=== PATIENT | male | born 1965 | race Caucasian/White ===

== ENCOUNTER → 2016-10-06 | Day surgery (SDC) | payer BC, MEDICARE ==
[~2016-10-06] MED LIST: BUPIVACAINE HCL PF 0.75% 30 ML VIAL ONE; CLINDAMYCIN PHOS 600 MG/4 ML VIAL ONE; GLIP10TA6 PO; LACTATED RINGER'S 1000 ML INJ 1,000 ML ONE; LIDOCAINE 1.5%/EPINEPHrine 1:200,000 PF SOLN 30 ML AMP ONE; MIDAZOLAM HCL 5 MG/ML VIAL (1 ML) ONE; ONDANSETRON HCL 4 MG/2 ML VIAL IV PUSH ONE; PROPOFOL 200 MG/20 ML AMP IV ONE
--- NOTE | 2016-10-08 11:25 | MP ---
cc: TANNER GAGE DATE OF SURGERY 10/06/2016 PREOPERATIVE DIAGNOSIS Left shoulder adhesive capsulitis, left shoulder impingement syndrome with bursitis, left shoulder fail biceps tenodesis with biceps rupture. POSTOPERATIVE DIAGNOSIS Left shoulder adhesive capsulitis, left shoulder impingement syndrome with bursitis, left shoulder fail biceps tenodesis with biceps rupture. PROCEDURE Left shoulder arthroscopic lysis of adhesions with subacromial decompression, left shoulder open biceps tenodesis. SURGEON Dr. Tanner Gage [employer] WORK[employer] ESTELA Walker ANESTHESIA General with an interscalene block. ESTIMATED BLOOD LOSS 50 cc COMPLICATIONS None IMPLANTS USED Arthrex JUSTIFICATION This patient is a 51-year-old male who injured his left shoulder. He has had persistence of pain, weakness, and stiffness, in regards to his condition. He has had extensive prior treatment with Dr. Pimentel to include an arthroscopy and biceps tenodesis. He has had progressive pain and stiffness of the shoulder with failure of conservative treatment. Clinical exam as well as MRI confirmed the above-named findings. The patient counseled as to the risks, benefits and alternatives in regards to the above named proposed surgical procedure. He did wish to proceed with surgery. PROCEDURE IN DETAIL A written consent was obtained. The patient was identified, taken to operating room, placed supine position and general anesthesia was administered, as well as two grams of IV Ancef. He receive a preoperative anterior interscalene block. The patient was carefully turned to a right lateral decubitus position. A lateral arm roll was placed. All bony prominences and pressure points were well padded. The left upper extremity was gently placed with an arthroscopic arm mcintosh and 10 pounds of traction placed. The left shoulder was prepped and draped using Isopropyl alcohol, Hibiclens solution and DuraPrep solution. After a time-out was performed, a standard posterior and anterior glenohumeral arthroscope portal was established. There was evidence of glenohumeral labral tearing along the anterior superior and posterior portions and extensive debridement of the labrum was performed. This included the 3 o'clock position up to the 12 o'clock position and back down to the 9 o'clock position. 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 There was evidence of scar formation and capsulitis mostly involving the anterior and inferior aspect. An arthroscopic shaver was introduced from the anterior portal and extensive debridement of the capsule and scar formation was performed to include lysis of adhesions. Attention was then turned to the subacromial space. There was evidence of significant impingement and bursitis. The arthroscopic shaver was introduced from the lateral portal. A subacromial decompression was performed. A shaver was used to perform an extensive bursectomy. The arthroscopic bur was used to perform an acromioplasty and the cautery device was used to release portions of the coracoacromial ligament. There was evidence of partial tearing of the rotator cuff and supraspinatus tendon with no evidence of full-thickness tear noted. At this point, attention was turned to the anterior aspect of the shoulder. An open longitudinal incision was made over the anterior aspect of the shoulder in line with his prior scar. Identification of the cephalic vein was performed and the deltopectoral interval was explored. The prior biceps tenodesis was seen and evaluated. It appears though the tenodesis screw was not in bone and this was then subsequently removed. The biceps itself was trimmed to a diameter of 8 mm and a #2 FiberWire Whip-stitch suture was placed in the distal portion of the tendon. A guide pin was placed within the anterior tubercular groove of the humerus and subsequently an 8 mm cannulated drill bit was drilled to a depth of 20 mm. Subsequently, an Arthrex 7 mm Bio tenodesis screw was inserted into the proximal humerus with a tenodesis effect of the tendon and the tendon was again inserted in the bone and after insertion of the screw, there was good purchase and fixation which was tested manually. The shoulder wound was then thoroughly irrigated sterile saline solution. The subcutaneous layer was closed with a 3-0 Vicryl suture. Skin was closed with Dermabond. Sterile dressings were applied. The patient was placed in a sling and swath immobilizer. He tolerated the procedure well with no intraoperative complications noted. Anam Barrera, physician salon assistant certified, was present during the entire procedure to include patient positioning and the procedure itself. The medical necessity of a physician salon assistant was indicated in this due to the complexity of the procedure. He assisted with appropriate manipulation of the arm and also retraction with muscle, tendon, bone and neurovascular structures. He assisted with both preparation of bone and also implantation of the Bio tenodesis screw for the purposes of tenodesis and surgical repair of biceps tendon. MD JOVANI Cheng/MIRIAM /4:27 PM /11:12 AM
== END | disposition home or self-care (01) ==
LOC: ESDC 12:37
PROVIDERS: ATTEND Orthopaedic Surgery Sports Medicine
DX: M75.02 Adhesive capsulitis of left shoulder (principal); M75.52 Bursitis of left shoulder; M75.42 Impingement syndrome of left shoulder; M75.112 Incomplete rotator cuff tear or rupture of left shoulder, not specified as traumatic; S46.212A Strain of muscle, fascia and tendon of other parts of biceps, left arm, initial encounter
CPT/HCPCS: 01630; 01716; 01991; 23430; 29825; 29826; 64417; C1713; J2250; J2405; J3010; J7120